=== PATIENT | male | born 1945 | race Caucasian/White ===

== ENCOUNTER 2019-08-02 16:46 | Observation (INO) | payer MEDICARE, OTHER ==
[~2019-08-02] VITALS: Ht 172.7 cm; Wt 83.5 kg
[~2019-08-02 16:46] MED LIST: HYTRIN5 MG OR; LASIX 20 MG TAB20 MG OR; LOTENSIN20 MG OR; NORVASC5 MG OR; PREVACID30 M2 OR
--- NOTE | 2019-08-02 16:48 | NUR ---
Pt ambulated to room # 8 with steady gait for bedside triage. Pt refused w/c. accompanied by spouse
--- NOTE | 2019-08-02 17:03 | NUR ---
PT PRESENTS WITH CHEST PAIN OF 0/10. PT STATES THAT HE HAD A CHEST PAIN OF 10/10 AND "IF IT WENT ON ANY LONGER, I DONT THINK I COULD HAVE HANDLED IT." PT IS CURRENTLY SITTING UP IN BED TALKING TO WHO IS AT BEDSIDE. LUNGS CLEAR BILATERALLY. PT DENIES ANY N/V OR RADIATING PAIN THAT OCCURED DURING EPISODE
[2019-08-02 17:14] LABS: HEMATOCRIT 41.2 % (39.0-50.0); HEMOGLOBIN 13.9 g/dl (14.0-18.0); IMMATURE GRANULOCYTES 1.1 % (0.0-5.0); MEAN CELL VOLUME 89.6 fL CALC (80.0-100.0); MEAN CORPUSCULAR HGB 30.2 pG CALC (26.0-32.0); MEAN CORPUSCULAR HGB CONC 33.7 g/L CALC (32.0-36.0); NEUT# 4.76 thou/uL (1.82-7.42); RED BLOOD COUNT 4.6 mill/uL (4.70-6.10); RED CELL DISTRI WIDTH 12.5 % (11.5-15.5)
[2019-08-02 17:25] LABS: ANION GAP 12 (6-22 (CALC)); BUN 31 mg/dL (8-23); BUN/CREATININE RATIO 41 (12-20 (CALC)); CARBON DIOXIDE 25 mmol/l (22-30); CHLORIDE 104 mmol/l (95-108); CREATININE 0.8 mg/dL (0.7-1.3); GFR > 60 ML/MIN (>=60 (CALC)); GFR FOR AFR.AMER. > 60 ML/MIN (>=60 (CALC)); POTASSIUM 4.1 mmol/l (3.5-5.1); SODIUM 137 mmol/l (137-146)
--- NOTE | 2019-08-02 18:25 | NUR ---
PT RESTING ON STRETCHER WATCHING TV. PT DENIES ANY NEEDS AT THIS TIME.
[2019-08-02 18:45] LABS: BILIRUBIN, TOTAL 0.4 mg/dL (0.0-1.4); TOTAL PROTEIN 6.9 g/dL (6.3-8.2)
[2019-08-02] MEDS ORDERED: NORVASC2.5 M1 PO (19:15)
--- NOTE | 2019-08-02 19:20 | NUR ---
RECEIVED REPORT FROM MICHAEL PT TO BE ADMITTED. DENIES ANY PAIN AT THIS TIME.
[2019-08-02] MEDS ORDERED: LOSARTAN POTASS50 MG PO (19:42)
[2019-08-02] MEDS ORDERED: NORVASC5 M1 PO (19:46)
[2019-08-02] MEDS ORDERED: PRAVASTATIN20 MG PO (19:47)
[2019-08-02] MEDS ORDERED: PANTOPRAZOLE SO40 M1 PO (19:47)
[2019-08-02] MEDS ORDERED: FUROSEMIDE20 MG PO (19:47)
[2019-08-02] MEDS ORDERED: TAMSULOSIN0.4 MG PO (19:48)
[2019-08-02] MEDS ORDERED: FINASTERIDE5 MG PO (19:49)
[2019-08-02] MEDS ORDERED: METFORMIN500 MG PO (19:49)
[2019-08-02] MEDS ORDERED: CIALIS5 MG PO (19:50)
[2019-08-02] MEDS ORDERED: METOPROL TAR25 MG PO (19:50)
--- NOTE | 2019-08-02 20:02 | NUR ---
TRIED TO CALL REPORT ON PT. PLACED ON HOLD NO ONE CAME TO PHONE.
--- NOTE | 2019-08-02 20:10 | NUR ---
CALLED FLOOR AGAIN FOR REPORT NO ANSWER.
--- NOTE | 2019-08-02 20:33 | NUR ---
CALLED REPORT TO BELA ROSARIO AND SHE VOICED CONCERN ABOUT PT HAVING B/P OF 168/98 AND ADMIT ORDERS DID NOT INCLUDE HTN MEDICATION. CALLED DR VALENTINE AND INFORMED HIM OF FLOORS CONCERN ABOUT BP AND NO ORDERS FOR MEDICATION. INFORMED DR VALENTINE THAT I UPDATED PT'S MEDICATION LIST AND HE STATED HE WOULD ADDRESS MEDICATION FOR ADMIT.
--- NOTE | 2019-08-02 20:39 | NUR ---
Admission Note Report Given to: BELA ROSARIO Transported by: X Wheelchair Stretcher Transported with: X Nurse Transporter X Patent IV O2 X Automatic Beading Lathe Operator
--- NOTE | 2019-08-02 20:50 | NUR ---
PT ARRIVED TO THE FLOOR VIA WC ACCOMPANIED BY ED NURSE. PT APPEARS TO BE IN STABLE CONDITION. UPON TAKING REPORT FROM ED NURSE, MEDIA ASSOCIATE QUESTIONED TREATMENT OF ELEVATED BP AND WAS TOLD BY ED NURSE THAT SHE NOTIFIED THE ATMOSPHERIC PHYSICS PROFESSOR ADMITTING PHYSICIAN AND REVIEWED PT'S HOME MEDICATIONS W/HIM AND HE STATED THAT HE WILL PLACE ORDERS FOR BP MEDICATIONS. WILL CONTINUE TO MONITOR AND AWAIT ORDERS. PT SELF AMBULATED TO STANDING SCALE AND BED W/STEADY GAIT. LOCX4.
--- NOTE | 2019-08-02 21:15 | NUR ---
PT ADMISSION AND ASSESSMENT COMPLETED AT THIS TIME. PT PROVIDED SANDWICH/REPORTS NOT HAVING HAD SUPPER AT ALL. PT ASSISTED W/TV AND ORIENTED TO ROOM.
[2019-08-02 21:50] VITALS: BP 163/83
--- NOTE | 2019-08-02 22:43 | NUR ---
PT MEDICATED ORDERS PRVOIDE. SNACK HAS BEEN PROVIDED. DENIES ANY OTHER NEEDS.
[2019-08-03] VITALS (7 sets, daily range): BP systolic 128–158; BP diastolic 74–93
--- NOTE | 2019-08-03 08:30 | NUR ---
PT IN SEMI BLOOD POSITION; TOLERATED BREAKFAST WELL; DENIES PAIN OR DISCOMFORT; TELE MONITOR IN PLACE; ENCOURAGE USE OF CALL LIGHT IF ANY ASSISTANCE IS NEEDED; CALL BOC[place]GRA WITHIN REACH; WILL CONTINUE TO MONITOR.
--- NOTE | 2019-08-03 11:32 | NUR ---
PT VISITING WITH SPOUSE; NO COMPLAINTS OR CONCERNS VOICED; CALL B[place]GRA WITHIN REACH; WILL CONTINUE TO MONITOR.
--- NOTE | 2019-08-03 16:30 | NUR ---
PT SITTING ON SIDE OF BED VISITING WITH SPOUSE; DENIES PAIN OR DISCOMFORT; TELE MONITOR IN PLACE; REQUEST COFFEE, PROVIDED; CALL B[place]GRA WITHIN REACH; WILL CONTINUE TO MONITOR.
--- NOTE | 2019-08-03 18:07 | NUR ---
PT TOLERATED DINNER WELL; SPOUSE IN ROOM; CALL B[place]GRA WITHIN REACH; WILL CONTINUE TO MONITOR.
--- NOTE | 2019-08-03 19:00 | NUR ---
RECEIVED REPORT FROM NURSE YUEN, PATIENT RESTING IN BED, TALKING TO PHONE, IN ROOM DENIES CHEST PAIN, CALL LIGHT AT REACH.
--- NOTE | 2019-08-03 21:00 | NUR ---
PATIENT ALERT & ORINETED X3, ABLE TO MAKE NEEDS KNOWN, WITH SALINE LOCK ON RAC PATENT FLUSHES WELL, REMAINS ON TELE SR 1ST AVB, IVCD 67, DENIES CHEST DISCOMFORT OR PAIN, IN ROOM, EVEN UNLABORED BREATHING CALL LIGHT AT REACH.
--- NOTE | 2019-08-04 | NUR ---
PATIENT RESTING IN BED, WITH EYES CLOSED, WITH EVEN UNLABORED BREATHING, NO DISCOMFORTS AT THIS TIME, CALL LIGHT AT REACH.
[2019-08-04 03:44] VITALS: BP 133/84
--- NOTE | 2019-08-04 05:55 | NUR ---
PATIENT RESTING IN BED WITH EYES CLOSED WITH EVEN UNLABORED BREATHING REMAINS ON TELE, NO DISCOMFORTS NOTED AT THIS TIME.
[2019-08-04 07:25] VITALS: BP 139/85
--- NOTE | 2019-08-04 07:25 | NUR ---
AWAKE ON ROUNDS. SITTING UP AT SIDE OF BED. RESP NON-LABORED, LUNGS CLEAR THROUGHOUT. NO PERIPHERAL EDEMA. DENIES ANY CHEST PAIN OR DISCOMFORTS. SALINE LOCK INTACT IN RAC, SITE BENIGN. SHIFT ASSESSMENT COMPLETED. DISCUSSED PLAN OF CARE. DENIES NEEDS AT THIS TIME.
[2019-08-04 10:48] VITALS: BP 144/89
--- NOTE | 2019-08-04 12:10 | NUR ---
IN TO VISIT. NO COMPLAINTS VOICED BY PATIENT.
[2019-08-04 12:45] LABS: CHOLESTEROL HDL RATIO 3.7 (<4.4 (CALC))
[2019-08-04 15:15] VITALS: BP 141/92
--- NOTE | 2019-08-04 17:05 | NUR ---
Discharge instructions given. Patient verbalizes understanding of same. Discharged in stable condition via Wheelchair to Home with spouse. All belongings sent with pt.
== END 2019-08-04 17:05 | disposition home or self-care (01) ==
LOC: ED 16:46 → ED-I 19:01 → ED 19:12 → MS2 19:19
PROVIDERS: Family Medicine; Nurse Practitioner Family; ADMIT Internal Medicine; ATTEND Internal Medicine
DX: R07.9 Chest pain, unspecified (principal); I10 Essential (primary) hypertension; E11.9 Type 2 diabetes mellitus without complications; I25.10 Atherosclerotic heart disease of native coronary artery without angina pectoris; E78.5 Hyperlipidemia, unspecified; N40.0 Benign prostatic hyperplasia without lower urinary tract symptoms; Z95.5 Presence of coronary angioplasty implant and graft; Z79.84 Long term (current) use of oral hypoglycemic drugs
CPT/HCPCS: G0378; J1650; Q9967

== ENCOUNTER 2020-11-06 | Inpatient (IN) | payer MEDICARE, OTHER ==
[2020-11-05 14:53] LABS: HEMATOCRIT 41.2 % (39.0-50.0); HEMOGLOBIN 13.5 g/dl (14.0-18.0); IMMATURE GRANULOCYTES 0.6 % (0.0-5.0); MEAN CELL VOLUME 91.6 fL CALC (80.0-100.0); MEAN CORPUSCULAR HGB CONC 32.8 g/dL CAL (32.0-36.0); NEUT# 7.64 thou/uL (1.82-7.42); RED BLOOD COUNT 4.5 mill/uL (4.70-6.10); RED CELL DISTRI WIDTH 12.7 % (11.5-15.5)
[2020-11-05 15:12] LABS: ALBUMIN 4.4 g/dL (3.2-5.0); ALKALINE PHOSPHATASE 53 u/l (38-126); ANION GAP 14 (6-22 (CALC)); BUN 22 mg/dL (8-23); BUN/CREATININE RATIO 23 (12-20 (CALC)); CARBON DIOXIDE 27 mmol/l (22-30); CHLORIDE 97 mmol/l (95-108); CREATININE 0.9 mg/dL (0.7-1.3); GFR > 60 ML/MIN (>=60 (CALC)); GFR FOR AFR.AMER. > 60 ML/MIN (>=60 (CALC)); POTASSIUM 3.9 mmol/l (3.5-5.1); SGOT/AST 19 u/l (19-48); SODIUM 134 mmol/l (137-146); TOTAL PROTEIN 7.2 g/dL (6.3-8.2)
[2020-11-05 18:10] VITALS: BP 122/74
[2020-11-05 19:10] VITALS: BP 109/66
[2020-11-05 23:37] VITALS: BP 97/57
[~2020-11-06] MED LIST changes: +CIALIS5 MG PO; +FINASTERIDE5 MG PO; +FUROSEMIDE20 MG PO; +LOSARTAN POTASS50 MG PO; +METFORMIN500 MG PO; +METOPROL TAR25 MG PO; +NORVASC2.5 M1 PO; +NORVASC5 M1 PO; +PANTOPRAZOLE SO40 M1 PO; +PRAVASTATIN20 MG PO; +TAMSULOSIN0.4 MG PO
[2020-11-06 03:30] VITALS: BP 112/70
[2020-11-06 06:24] LABS: IMMATURE GRANULOCYTES 0.7 % (0.0-5.0); MEAN CELL VOLUME 92.6 fL CALC (80.0-100.0); MEAN CORPUSCULAR HGB 30.3 pG CALC (26.0-32.0); MEAN CORPUSCULAR HGB CONC 32.7 g/dL CAL (32.0-36.0); NEUT# 11.11 thou/uL (1.82-7.42); RED BLOOD COUNT 3.66 mill/uL (4.70-6.10); RED CELL DISTRI WIDTH 12.8 % (11.5-15.5)
[2020-11-06 06:31] LABS: HEMATOCRIT 33.9 % (39.0-50.0); HEMOGLOBIN 11.1 g/dl (14.0-18.0)
[2020-11-06 06:37] LABS: ALKALINE PHOSPHATASE 39 u/l (38-126); ANION GAP 8 (6-22 (CALC)); BUN 23 mg/dL (8-23); BUN/CREATININE RATIO 27 (12-20 (CALC)); CARBON DIOXIDE 26 mmol/l (22-30); CHLORIDE 102 mmol/l (95-108); CREATININE 0.9 mg/dL (0.7-1.3); GFR > 60 ML/MIN (>=60 (CALC)); GFR FOR AFR.AMER. > 60 ML/MIN (>=60 (CALC)); POTASSIUM 4.1 mmol/l (3.5-5.1); SGOT/AST 14 u/l (19-48); SODIUM 133 mmol/l (137-146)
[2020-11-06 06:38] LABS: BILIRUBIN, TOTAL 0.5 mg/dL (0.0-1.4); TOTAL PROTEIN 5.3 g/dL (6.3-8.2)
[2020-11-06 07:38] VITALS: BP 117/71
[2020-11-06 10:45] VITALS: BP 116/73
[2020-11-06 15:30] VITALS: BP 131/75
[2020-11-06 19:45] VITALS: BP 131/81
[2020-11-07] VITALS (7 sets, daily range): BP systolic 129–150; BP diastolic 80–86
[2020-11-07 04:45] LABS: HEMATOCRIT 33.3 % (39.0-50.0); HEMOGLOBIN 10.8 g/dl (14.0-18.0); IMMATURE GRANULOCYTES 0.6 % (0.0-5.0); MEAN CELL VOLUME 92.2 fL CALC (80.0-100.0); MEAN CORPUSCULAR HGB 29.9 pG CALC (26.0-32.0); MEAN CORPUSCULAR HGB CONC 32.4 g/dL CAL (32.0-36.0); NEUT# 9.29 thou/uL (1.82-7.42); RED BLOOD COUNT 3.61 mill/uL (4.70-6.10); RED CELL DISTRI WIDTH 12.7 % (11.5-15.5)
[2020-11-07 05:02] LABS: ALBUMIN 2.9 g/dL (3.2-5.0); ALKALINE PHOSPHATASE 38 u/l (38-126); ANION GAP 8 (6-22 (CALC)); BILIRUBIN, TOTAL 0.4 mg/dL (0.0-1.4); BUN 28 mg/dL (8-23); BUN/CREATININE RATIO 32 (12-20 (CALC)); CARBON DIOXIDE 27 mmol/l (22-30); CHLORIDE 101 mmol/l (95-108); CREATININE 0.9 mg/dL (0.7-1.3); GFR > 60 ML/MIN (>=60 (CALC)); GFR FOR AFR.AMER. > 60 ML/MIN (>=60 (CALC)); POTASSIUM 3.8 mmol/l (3.5-5.1); SGOT/AST 15 u/l (19-48); SODIUM 133 mmol/l (137-146); TOTAL PROTEIN 5.3 g/dL (6.3-8.2)
[2020-11-07 23:53] LABS: URINE BILIRUBIN - DIPSTICK NEGATIVE (NEGATIVE); URINE BLOOD DIPSTICK NEGATIVE (NEGATIVE); URINE COLOR YELLOW; URINE GLUCOSE - DIPSTICK 250 mg/dL (NEGATIVE); URINE KETONE NEGATIVE (NEGATIVE); URINE LEUK ESTERASE NEGATIVE (NEGATIVE); URINE PROTEIN - DIPSTICK NEGATIVE (NEG-TRACE); URINE UROBILINOGEN - DIPSTICK 0.2 E.U./dL (0.2)
[2020-11-07 23:55] LABS: URINE NITRITE - DIPSTICK NEGATIVE (Negative)
[2020-11-08 04:00] VITALS: BP 135/80
[2020-11-08 05:46] LABS: HEMATOCRIT 34.7 % (39.0-50.0); HEMOGLOBIN 11.5 g/dl (14.0-18.0); MEAN CELL VOLUME 90.4 fL CALC (80.0-100.0); MEAN CORPUSCULAR HGB 29.9 pG CALC (26.0-32.0); MEAN CORPUSCULAR HGB CONC 33.1 g/dL CAL (32.0-36.0); RED BLOOD COUNT 3.84 mill/uL (4.70-6.10); RED CELL DISTRI WIDTH 12.3 % (11.5-15.5)
[2020-11-08 05:59] LABS: ANION GAP 8 (6-22 (CALC)); BUN 19 mg/dL (8-23); BUN/CREATININE RATIO 24 (12-20 (CALC)); CARBON DIOXIDE 27 mmol/l (22-30); CHLORIDE 100 mmol/l (95-108); CREATININE 0.8 mg/dL (0.7-1.3); GFR > 60 ML/MIN (>=60 (CALC)); GFR FOR AFR.AMER. > 60 ML/MIN (>=60 (CALC)); MAGNESIUM 2.1 mg/dL (1.6-2.3); SODIUM 131 mmol/l (137-146)
[2020-11-08 07:58] VITALS: BP 126/79
[2020-11-08 10:45] VITALS: BP 134/79
[2020-11-08 15:00] VITALS: BP 126/73
[2020-11-08 19:00] VITALS: BP 152/75
[2020-11-09] VITALS (7 sets, daily range): BP systolic 119–154; BP diastolic 71–88
[2020-11-09 05:41] LABS: HEMATOCRIT 36.3 % (39.0-50.0); HEMOGLOBIN 11.8 g/dl (14.0-18.0); MEAN CELL VOLUME 90.8 fL CALC (80.0-100.0); MEAN CORPUSCULAR HGB 29.5 pG CALC (26.0-32.0); MEAN CORPUSCULAR HGB CONC 32.5 g/dL CAL (32.0-36.0); RED CELL DISTRI WIDTH 12.4 % (11.5-15.5)
[2020-11-09 05:59] LABS: ANION GAP 10 (6-22 (CALC)); BUN 17 mg/dL (8-23); BUN/CREATININE RATIO 19 (12-20 (CALC)); CARBON DIOXIDE 27 mmol/l (22-30); CHLORIDE 99 mmol/l (95-108); CREATININE 0.9 mg/dL (0.7-1.3); GFR > 60 ML/MIN (>=60 (CALC)); GFR FOR AFR.AMER. > 60 ML/MIN (>=60 (CALC)); MAGNESIUM 2.2 mg/dL (1.6-2.3); POTASSIUM 4.1 mmol/l (3.5-5.1); SODIUM 132 mmol/l (137-146)
[2020-11-10 04:24] VITALS: BP 140/83
[2020-11-10 06:26] LABS: MEAN CORPUSCULAR HGB CONC 33.3 g/dL CAL (32.0-36.0); RED CELL DISTRI WIDTH 12.2 % (11.5-15.5)
[2020-11-10 06:47] LABS: ANION GAP 7 (6-22 (CALC)); BUN 16 mg/dL (8-23); BUN/CREATININE RATIO 19 (12-20 (CALC)); CARBON DIOXIDE 27 mmol/l (22-30); CHLORIDE 102 mmol/l (95-108); CREATININE 0.8 mg/dL (0.7-1.3); GFR > 60 ML/MIN (>=60 (CALC)); GFR FOR AFR.AMER. > 60 ML/MIN (>=60 (CALC)); MAGNESIUM 2.1 mg/dL (1.6-2.3); POTASSIUM 4.2 mmol/l (3.5-5.1); SODIUM 132 mmol/l (137-146)
[2020-11-10 07:00] VITALS: BP 139/89
[2020-11-10] MEDS ORDERED: OMNICEF300 MG PO (11:45)
== END 2020-11-10 13:00 | disposition home or self-care (01) | DRG 194 ==
PROVIDERS: Nurse Practitioner; Nurse Practitioner Family; ADMIT Internal Medicine
DX: J18.9 Pneumonia, unspecified organism (principal); E87.2 Acidosis; R78.81 Bacteremia; I10 Essential (primary) hypertension; E11.9 Type 2 diabetes mellitus without complications; I25.10 Atherosclerotic heart disease of native coronary artery without angina pectoris; E78.5 Hyperlipidemia, unspecified; K76.9 Liver disease, unspecified; N40.0 Benign prostatic hyperplasia without lower urinary tract symptoms; Z95.5 Presence of coronary angioplasty implant and graft; Z79.84 Long term (current) use of oral hypoglycemic drugs; Z20.822 Contact with and (suspected) exposure to COVID-19
CPT/HCPCS: G0378; J1650; Q3014; Q9967